=== PATIENT | female | born 1940 | race African-American/Black ===

== ENCOUNTER 2022-11-01 23:52 | Emergency (ER) | payer OTHER ==
[~2022-11-01] VITALS: Ht 165.1 cm; Wt 53.2 kg
[2022-11-02] VITALS: TEMP 98.3; O2SAT 99
[2022-11-02] MEDS ORDERED: CLONIDINE 0.1MG TABLET PO ONE (00:30)
[2022-11-02 00:55] VITALS: BP 176/80; PULSE 67; RESP 12
== END 2022-11-02 01:00 | disposition home or self-care (01) ==
LOC: ER 11-02 00:02
DX: I10 Essential (primary) hypertension (principal)
CPT/HCPCS: 99283